=== PATIENT | male | born 1995 | race African-American/Black ===

== ENCOUNTER 2021-07-20 20:35 | Emergency (ER) | payer SELFPAY ==
--- NOTE | ~2021-07-20 | XR_ITS ---
EXAMINATION: XR chest 2V DATE: 07/21/2021 01:50 INDICATION: Chest pain TECHNIQUE: PA and lateral views of the chest were obtained. COMPARISON: None FINDINGS: The lungs are clear with no focal airspace opacities, pulmonary edema, pleural effusion or pneumothor ax. The cardiomediastinal silhouette is normal. Visualized bones and soft tissues are unremarkable. IMPRESSION: 1. Normal chest radiograph. Reviewed, dictated and finalized at location A. IMPRESSION: 1. Normal chest radiograph.
--- NOTE | ~2021-07-20 | US_ITS ---
US scrotum doppler DATE: 07/20/2021 23:53 INDICATION: Scrotal pain TECHNIQUE: Real-time and color flow imaging and Doppler analysis COMPARISON: None FINDINGS: The right testicle measures 4.2 x 2.0 x 3.0 cm. The left testicle measures 4.0 x 2.0 x 2.9 cm. No testicular mass lesion or torsion is detected. The epididymis appears normal bilaterally. No hydrocele or varicocele is detected. IMPRESSION: No significant abnormality Reviewed, dictated and finalized at [facility]. Reviewed, dictated and finalized at location A. IMPRESSION: No significant abnormality
[2021-07-20 21:12] VITALS: BP 124/74; PULSE 58; RESP 16; TEMP 36.8; O2SAT 100
--- NOTE | 2021-07-20 22:33 | ECG_ITS ---
Measurements Intervals [place] Rate: 50 P: 57 DE: 160 QRS: 62 QRSD: 89 T: 47 QT: 421 QTc: 384 Interpretive Statements SINUS BRADYCARDIA ST ELEVATION IN DIFFUSE LEADS- PROBABLY EARLY REPOLARIZATION ABNORMALITY BORDERLINE ECG Electronically Signed On 07-21-2021 6:42:26 CDT by Choco Salter D.O.
--- NOTE | 2021-07-20 22:33 | ED.GENADULT ---
HPI - General Adult General Chief complaint: Unspecified Stated complaint: aches, nausea, groin pain Time Seen by Provider: 07/20/21 22:01 Source: patient and RN notes reviewed History of Present Illness HPI narrative: Patient is a 25 y/o male complaining of generalized body ache starting 5 days ago. He states that his pain is aching and rates it as 10/10 at max. He has pain in his chest, abdominal pain, groin, testicle, back etc. He has no fever, chills, cough or vomiting. Review of Systems Constitutional: Constitutional: Denies chills, Denies fever(s), Denies headache(s) and Denies weakness Eyes: Eyes: Denies blurry vision ENT: Denies headache(s) and Denies neck pain Cardiovascular: Cardiovascular: Reports chest pain and Denies dyspnea Respiratory: Respiratory: Denies cough and Denies dyspnea Gastrointestinal: Gastrointestinal: Reports abdominal pain, Denies diarrhea, Denies nausea and Denies vomiting Genitourinary: Genitourinary: Denies hematuria, Denies dysuria and Reports testicular pain Musculoskeletal: Musculoskeletal: Reports back pain and Denies neck pain Neurologic: Denies headache(s) and Denies weakness Exam Const: General: no acute distress and well developed Orientation/consciousness: oriented to person, oriented to place, oriented to time and patient oriented x3 HENMT: Head: normocephalic Ears: external ears normal General nose exam: Normal external nose present Eyes: General: appearance normal, both eyes and all related structures Conjunctivae: conjunctivae normal Neck: Neck: normal visual inspection and full ROM Chest: Chest palpation & inspection: normal inspection of the chest and no tenderness Resp: Effort & Inspection: normal respiratory effort Auscultation: clear to auscultation bilaterally Cardio: Rate: regular rate Rhythm: regular rhythm GI: GI Palp: No abdominal tenderness and Yes Soft to palpation : Scrotum: scrotum normal and no inguinal hernias Skin: General skin exam: normal color and turgor normal Neuro: General: oriented to person, oriented to place, oriented to time and patient oriented x3 Cognition (Neuro): normal cognition Extrem: General: normal to inspection, full ROM and no pedal edema Psych: Appearance: grossly normal Mental Status: mental status grossly normal Affect: normal affect Course Vital Signs Vital signs: Vital Signs Temperature 36.8 C 07/20/21 21:12 Pulse Rate 58 L 07/20/21 21:12 Respiratory Rate 16 07/20/21 21:12 Blood Pressure 124/74 07/20/21 21:12 Pulse Oximetry 100 07/20/21 21:12 Temperature 36.8 C 07/20/21 21:12 Pulse Rate 60 07/21/21 02:35 Respiratory Rate 18 07/21/21 02:35 Blood Pressure 131/76 07/21/21 02:35 Pulse Oximetry 100 07/21/21 02:35 Medical Decision Making Vital Signs Vital Signs: Vital Signs Temperature 36.8 C 07/20/21 21:12 Pulse Rate 58 L 07/20/21 21:12 Respiratory Rate 16 07/20/21 21:12 Blood Pressure 124/74 07/20/21 21:12 Pulse Oximetry 100 07/20/21 21:12 Temperature 36.8 C 07/20/21 21:12 Pulse Rate 60 07/21/21 02:35 Respiratory Rate 18 07/21/21 02:35 Blood Pressure 131/76 07/21/21 02:35 Pulse Oximetry 100 07/21/21 02:35 Lab Data Result diagrams: 07/20/21 22:17 07/20/21 22:17 Labs: Lab Results 07/20/21 07/20/21 07/20/21 Range/Units 22:17 22:17 22:21 WBC 4.3 L (4.5-10.0) K/mm3 RBC 4.11 L (4.6-6.20) M/mm3 Hgb 13.0 L (14.0-18.0) g/dL Hct 39.0 L (42.0-52.0) % MCV 94.9 (80-100) fl MCH 31.6 (26-34) pg MCHC 33.3 (32-36) g/dl RDW 12.6 (11.5-14.5) % Plt Count 159 (150-375) k/mm3 MPV 11.5 H (7.4-10.4) fl Immature Gran % (Auto) 0.0 (0-0.5) % Neut % (Auto) 43.6 L (45.5-73.1) % Lymph % (Auto) 46.9 H (18.3-44.2) % [place] % (Auto) 8.1 (2.6-8.5) % Eos % (Auto) 1.2 (0-4.4) % Baso % (Auto) 0.2 (0.2-1.2) % Lymph # (Auto) 2.03 (0.9-3.2)
[2021-07-20 22:36] LABS: Basophils Percent Auto 0.2 % (0.2-1.2); Eosinophils Absolute Auto 0.1 K/mm3 (0-0.3); Eosinophils Percent Auto 1.2 % (0-4.4); Lymphocytes Absolute Auto 2.03 K/mm3 (0.9-3.2); Lymphocytes Percent Auto 46.9 % (18.3-44.2); Mean Corpuscular HGB Conc 33.3 g/dl (32-36); Mean Corpuscular Hemoglobin 31.6 pg (26-34); Mean Corpuscular Volume 94.9 fl (80-100); Mean Platelet Volume 11.5 fl (7.4-10.4); Monocytes Absolute Auto 0.4 K/mm3 (0.1-0.6); Monocytes Percent Auto 8.1 % (2.6-8.5); Neutrophils Absolute Auto 1.9 K/mm3 (1.3-6.7); Neutrophils Percent Auto 43.6 % (45.5-73.1); Platelet Count Result 159 k/mm3 (150-375); Red Blood Count 4.11 M/mm3 (4.6-6.20); Red Cell Distribution Width 12.6 % (11.5-14.5); White Blood Count 4.3 K/mm3 (4.5-10.0)
[2021-07-20 22:52] LABS: Add Urine Microscopic? YES; Appearance Urine Cloudy (Clear); Bilirubin Urine Negative (Negative); Blood Urine Negative (Negative); Color Urine Yellow (Yellow); Glucose Urine UA Negative (Negative); Ketones Urine Negative (Negative); Leukocyte Esterase Ur Negative LEU/UL (Negative); Mucus Urine Few /lpf; Nitrate Urine Negative (Negative); Protein Urine 1+ mg/dL (Negative)
[2021-07-20 22:54] LABS: Specific Grav Ur 1.033 (1.001-1.035)
[2021-07-20 23:05] LABS: Alanine Aminotransferase 23 U/L (4-50); Albumin Level 4.5 g/dL (3.5-5.1); Alkaline Phosphatase 46 U/L (38-126); Anion Gap 7 mmol/L (8-16); Aspartate Amino Transferase 24 U/L (17-59); Bilirubin,Total 0.4 mg/dL (0.2-1.3); Blood Urea Nitrogen 13 mg/dL (9-20); Calcium 9.7 mg/dL (8.4-10.2); Carbon Dioxide 30 mmol/L (22-30); Chloride 106 mmol/L (98-107); Estimated CRCL calculation 132 ml/min; Estimated Glomerular Filt Rate > 60; Glucose 90 mg/dL (65-110); Potassium 4.2 mmol/L (3.4-5.0); Sodium 143 mmol/L (137-145)
[2021-07-20 23:12] VITALS: BP 137/84; PULSE 56; RESP 16; O2SAT 100
[2021-07-20 23:17] LABS: Troponin I < 0.012 ng/mL (0.000-0.034)
[2021-07-20 23:31] VITALS: BP 134/76; PULSE 57; RESP 13; O2SAT 100
[2021-07-20 23:32] VITALS: PULSE 56; RESP 17; O2SAT 100
[2021-07-20 23:57] VITALS: PULSE 57; RESP 15; O2SAT 100
--- NOTE | 2021-07-20 23:58 | PC.NURSE ---
assumed care of patient
[2021-07-20 23:59] VITALS: BP 135/71
[2021-07-21 02:14] LABS: Troponin I < 0.012 ng/mL (0.000-0.034)
[2021-07-21 02:35] VITALS: BP 131/76; PULSE 60; RESP 18; O2SAT 100
== END 2021-07-21 02:36 | disposition home or self-care (01) ==
PROVIDERS: Emergency Provider Emergency Medicine
DX: R07.9 Chest pain, unspecified (principal); M79.10 Myalgia, unspecified site; R00.1 Bradycardia, unspecified; R94.31 Abnormal electrocardiogram [ECG] [EKG]
CPT/HCPCS: 36415; 71046; 76870; 80053; 81001; 84484; 85025; 93005; 93976; 99284